=== PATIENT | female | born 1965 | race African-American/Black ===

== ENCOUNTER 2017-03-11 11:13 | Emergency (ER) | payer OTHER, MEDICARE ==
[~2017-03-11] VITALS: Ht 165.1 cm; Wt 82.5 kg
[~2017-03-11 11:13] MED LIST: DICY10 PO; LEVO100T4 PO; PANT20 PO; Z.0.OXYGEN INH; [UNRECOGNIZED DRUG - CODE] SC
[2017-03-11 11:15] VITALS: BP 132/81; PULSE 76; RESP 15; TEMP 98.3; O2SAT 98
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
[2017-03-11] MEDS ORDERED: PRAD75CA PO (14:28)
[2017-03-11] MEDS ORDERED: LEVO75TA3 PO (14:28)
[2017-03-11] MEDS ORDERED: HYDR25TA5 PO (14:28)
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
[2017-03-11] MEDS ORDERED: oxyCODONE/ACETAMINOPHEN 5 MG/325 MG TAB PO ONE (14:45)
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
[2017-03-11] MEDS ORDERED: PERC5TAB12 PO (16:10)
[2017-03-11 16:34] VITALS: BP 122/78
== END 2017-03-11 16:50 | disposition home or self-care (01) ==
LOC: NEPD 11:13
DX: S92.351A Displaced fracture of fifth metatarsal bone, right foot, initial encounter for closed fracture (principal); S62.002A Unspecified fracture of navicular [scaphoid] bone of left wrist, initial encounter for closed fracture; V24.4XXA Motorcycle driver injured in collision with heavy transport vehicle or bus in traffic accident, initial encounter; Y92.414 Local residential or business street as the place of occurrence of the external cause; M85.879 Other specified disorders of bone density and structure, unspecified ankle and foot; D86.9 Sarcoidosis, unspecified; E03.9 Hypothyroidism, unspecified; Z86.718 Personal history of other venous thrombosis and embolism; Z79.01 Long term (current) use of anticoagulants
CPT/HCPCS: 29515; 73130; 73502; 73564; 73590; 73630; 99284; E0113; L3260; L3808

== ENCOUNTER 2017-03-14 11:02 | Emergency (ER) | payer OTHER, MEDICARE ==
[~2017-03-14] VITALS: Ht 165.1 cm; Wt 82.7 kg
[~2017-03-14 11:02] MED LIST changes: -DICY10 PO; +HYDR25TA5 PO; -LEVO100T4 PO; +LEVO75TA3 PO; -PANT20 PO; +PERC5TAB12 PO; +PRAD75CA PO; -Z.0.OXYGEN INH; -[UNRECOGNIZED DRUG - CODE] SC
[2017-03-14 11:04] VITALS: BP 183/82; PULSE 88; RESP 12; TEMP 98.6; O2SAT 100
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
[2017-03-14] MEDS ORDERED: PERC5TAB12 PO (11:24)
== END 2017-03-14 11:54 | disposition home or self-care (01) ==
LOC: NEPK 11:02
DX: Z76.0 Encounter for issue of repeat prescription (principal); M79.672 Pain in left foot; M25.532 Pain in left wrist; D86.9 Sarcoidosis, unspecified; J84.10 Pulmonary fibrosis, unspecified; K85.90 Acute pancreatitis without necrosis or infection, unspecified; E07.9 Disorder of thyroid, unspecified; Z79.899 Other long term (current) drug therapy; Z88.0 Allergy status to penicillin
CPT/HCPCS: 99281

== ENCOUNTER → 2017-06-02 | Day surgery (SDC) | payer MEDICARE, OTHER ==
[~2017-06-02] MED LIST changes: +ACETAMINOPHEN/HYDROcodone 325 MG/5 MG TAB ONE; +BUPIVACAINE/EPINEPHRINE 0.5% PF 10 ML VIAL ONE; +LACTATED RINGER'S 1000 ML INJ 1,000 ML ONE; +MEPERIDINE HCL 25 MG/ML VIAL ONE; +MIDAZOLAM HCL 2 MG/2 ML VIAL ONE; +MORPHINE SULFATE 4 MG/ML INJ ONE; +ONDANSETRON HCL 4 MG/2 ML VIAL IV PUSH ONE; +PROPOFOL 200 MG/20 ML AMP IV ONE; +ceFAZolin INJ 1,000 MG VIAL ONE
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
== END | disposition home or self-care (01) ==
LOC: ESDC 10:20
PROVIDERS: ATTEND Orthopaedic Surgery
DX: S83.241A Other tear of medial meniscus, current injury, right knee, initial encounter (principal)
CPT/HCPCS: 01400; 29881; J0690; J2175; J2250; J2270; J2405; J3010; J7120

== ENCOUNTER 2017-08-12 09:21 | Emergency (ER) | payer OTHER, MEDICARE ==
[~2017-08-12] VITALS: Ht 165.1 cm; Wt 83.0 kg
[~2017-08-12 09:21] MED LIST changes: -ACETAMINOPHEN/HYDROcodone 325 MG/5 MG TAB ONE; -BUPIVACAINE/EPINEPHRINE 0.5% PF 10 ML VIAL ONE; -LACTATED RINGER'S 1000 ML INJ 1,000 ML ONE; -MEPERIDINE HCL 25 MG/ML VIAL ONE; -MIDAZOLAM HCL 2 MG/2 ML VIAL ONE; -MORPHINE SULFATE 4 MG/ML INJ ONE; -ONDANSETRON HCL 4 MG/2 ML VIAL IV PUSH ONE; -PROPOFOL 200 MG/20 ML AMP IV ONE; -ceFAZolin INJ 1,000 MG VIAL ONE
[2017-08-12 09:22] VITALS: BP 174/80; PULSE 64; RESP 14; TEMP 98.2; O2SAT 98
[2017-08-12] MEDS ORDERED: OXYB5TAB8 PO (09:39)
--- NOTE | 2017-08-12 09:39 | PD ---
HPI Chief Complaint: Abdominal Pain Time Seen by Provider: 09:33 Travel History International Travel<30 days: No Contact w/Intl Traveler<30days: No Traveled to known affect area: No History of Present Illness HPI The patient's 51 years old and complains of nausea vomiting diarrhea and abdominal pain. She reports pain in the epigastric right upper quadrant. She has a history of pancreatitis and believes his symptoms are similar. She was seen the [facility] and sent here. The onset was gradual. Timing is constant. Pain is worse with palpation. No fever. Appetite decreased. Etiology of pancreatitis unknown at this time. PFSH Past Medical History Hx Anticoagulant Therapy: Yes (RAGMIN) Diminished Hearing: No Hypertension: Yes Implanted Vascular Access Dvce: Yes Respiratory: Yes (PE, EMPHYSEMA) Pancreatitis: Yes Thyroid Disease: Yes ?: Not : 3 Para: 4 Ectopic : Yes Tubal Ligation: Yes Past Surgical History Appendectomy: Yes Body Medical Devices: clips and pins in right ankle Cholecystectomy: Yes Hysterectomy: Yes (PARTIAL) Other Surgery: Yes (thyroidectomy, lung biopsy x 2) Social History Alcohol Use: No Tobacco Use: No Substance Use: No Allergies-Medications (Allergen,Severity, Reaction): Coded Allergies: zolmitriptan (Unverified Allergy, Severe, 03/18/17) penicillin G (Unverified Allergy, Intermediate, RASH, 03/18/17) adhesive (Unverified Allergy, Mild, SALMON THE SKIN, 03/18/17) levothyroxine (Unverified Allergy, Mild, 03/18/17) levothyroxine sodium (Unverified Allergy, Mild, 03/18/17) sumatriptan (Unverified Allergy, Mild, LOSS OF VISION, 03/18/17) ibuprofen (Unverified Adverse Reaction, Severe, 03/18/17) abd pain naproxen (Unverified Adverse Reaction, Severe, 03/18/17) abd pain Reported Meds & Prescriptions Reported Meds & Active Scripts Active Zofran Odt (Ondansetron Odt) 4 Mg Tab 4 Mg SL Q8HR PRN Reported Ditropan (Oxybutynin Chloride) 5 Mg Tab 5 Mg PO DAILY Pradaxa (Dabigatran) Unknown Strength Cap 1 Cap PO DAILY Levothyroxine (Levothyroxine Sodium) 75 Mcg Tab 75 Mcg PO DAILY Hydrochlorothiazide 25 Mg Tab 25 Mg PO DAILY Review of Systems Except as stated in HPI: all other systems reviewed are Neg Physical Exam Narrative GENERAL: 51-year-old female pleasant SKIN: Warm and dry. HEAD: Atraumatic. Normocephalic. EYES: Pupils equal and round. No scleral icterus. No injection or drainage. ENT: No nasal bleeding or discharge. Mucous membranes pink and moist. NECK: Trachea midline. No JVD. CARDIOVASCULAR: Regular rate and rhythm. RESPIRATORY: No accessory muscle use. Clear to auscultation. Breath sounds equal bilaterally. GASTROINTESTINAL: Soft. Minimal tenderness palpation epigastrium. MUSCULOSKELETAL: Extremities without clubbing, cyanosis, or edema. No obvious deformities. NEUROLOGICAL: Awake and alert. No obvious cranial nerve deficits. Motor grossly within normal limits. Five out of 5 muscle strength in the arms and legs. Normal speech. PSYCHIATRIC: Appropriate mood and affect; insight and judgment normal. Data Data Last Documented VS Vital Signs Date Time Temp Pulse Resp B/P (MAP) Pulse Ox O2 Delivery O2 Flow Rate FiO2 08/12/17 11:37 08/12/17 09:42 97 Room Air 08/12/17 09:34 20 08/12/17 09:22 98.2 64 VS reviewed Orders Orders Complete Blood Count With Diff (08/12/17 09:36) Comprehensive Metabolic Panel (08/12/17 09:36) Lipase (08/12/17 09:36) Urinalysis - C+S If Indicated (08/12/17 09:36) Iv Access Insert/Monitor (08/12/17 09:36) Ecg Monitoring (08/12/17 09:36) Oximetry (08/12/17 09:36) Ondansetron Inj (Zofran Inj) (08/12/17 09:45) Sodium Chloride 0.9% Flush (Ns Flush) (08/12/17 09:45) Dicyclomine Inj (Bentyl Inj) (08/12/17 09:45) Al-Mag Hy-Si 40-40-4 Mg/Ml Liq (Mag-Al P (08/12/17 09:45) Lidocaine 2% Viscous (Xylocaine 2% Visco (08/12/17 09:45) Ct Abd/Pel W Iv Contrast(Rout) (08/12/17 09:36) Iohexol 350 Inj (Omnipaque 350 Inj) (08/12/17 10:19) Labs Laboratory Tests Test 08/12/17 09:41 White Blood Count 5.3 TH/MM3 Red Blood Count 4.28 MIL/MM3 Hemoglobin 13.1 GM/DL Hematocrit 38.4 % Mean Corpuscular Volume 89.6 FL Mean Corpuscular Hemoglobin 30.6 PG Mean Corpuscular Hemoglobin Concent 34.2 % Red Cell Distribution Width 14.2 % Platelet Count 267 TH/MM3 Mean Platelet Volume 9.0 FL Neutrophils (%) (Auto) 36.7 % Lymphocytes (%) (Auto) 51.6 % Monocytes (%) (Auto) 8.0 % Eosinophils (%) (Auto) 3.0 % Basophils (%) (Auto) 0.7 % Neutrophils # (Auto) 2.0 TH/MM3 Lymphocytes # (Auto) 2.8 TH/MM3 Monocytes # (Auto) 0.4 TH/MM3 Eosinophils # (Auto) 0.2 TH/MM3 Basophils # (Auto) 0.0 TH/MM3 CBC Comment DIFF FINAL Differential Comment Urine Color YELLOW Urine Turbidity CLEAR Urine pH 8.0 Urine Specific [place] 1.022 Urine Protein TRACE mg/dL Urine Glucose (UA) NEG mg/dL Urine Ketones NEG mg/dL Urine Occult Blood MOD Urine Nitrite NEG Urine Bilirubin NEG Urine Urobilinogen LESS THAN 2.0 MG/DL Urine Leukocyte Esterase SMALL Urine RBC 48 /hpf Urine WBC 4 /hpf Urine Squamous Epithelial Cells 3 /hpf Urine Mucus FEW /lpf Microscopic Urinalysis Comment CULT NOT INDICATED Blood Urea Nitrogen 14 MG/DL Creatinine 0.76 MG/DL Random Glucose 89 MG/DL Total Protein 8.1 GM/DL Albumin 4.2 GM/DL Calcium Level 8.7 MG/DL Alkaline Phosphatase 99 U/L Aspartate Amino Transf (AST/SGOT) 31 U/L Alanine Aminotransferase (ALT/SGPT) 49 U/L Total Bilirubin 0.5 MG/DL Sodium Level 141 MEQ/L Potassium Level 3.3 MEQ/L Chloride Level 104 MEQ/L Carbon Dioxide Level 32.3 MEQ/L Anion Gap 5 MEQ/L Estimat Glomerular Filtration Rate 97 ML/MIN Lipase 110 U/L [facility] Medical Decision Making Medical Screen Exam Complete: Yes Emergency Medical Condition: Yes Medical Record Reviewed: Yes Differential Diagnosis Gastritis, pancreatitis, appendicitis, acute cholecystitis, ascending cholangitis, AAA, perforated viscous, mesenteric ischemia, hepatitis, cystitis, hydronephrosis/hydroureter/nephroureter calculus, mesenteric adenitis, biliary colic , bowel obstruction Narrative Course CBC & BMP Diagram 08/12/17 09:41 Total Protein 8.1, Albumin 4.2, Calcium Level 8.7, Alkaline Phosphatase 99, Aspartate Amino Transf (AST/SGOT) 31, Alanine Aminotransferase (ALT/SGPT) 49, Total Bilirubin 0.5 Last Impressions Abdomen/Pelvis CT 08/12/17 0936 Signed Impressions: Service Date/Time: Saturday, August 12, 2017 10:06 - CONCLUSION: 1. Nonobstructive bowel gas pattern. 2. Status post cholecystectomy. Lucas Ortega MD The patient is resting comfortably and feels better, is alert and in no distress. The patients results and examination findings were discussed. The repeat examination is unremarkable and benign. The history, exam, diagnostic testing, and current condition do not suggest any significant pathology to warrant further testing, continued ED treatment, admission, or surgical evaluation at this point. The vital signs have been stable. The patient does not have uncontrollable pain, intractable vomiting, or other significant symptoms. The patient's condition is stable and appropriate for discharge. The patient will pursue further outpatient evaluation with a primary care physician or other designated or consulting physician as indicated in the discharge instructions. The patient expressed understanding and was agreeable with this plan. Diagnosis Primary Impression: Vomiting and diarrhea Additional Impression: Abdominal pain Qualified Codes: R10.9 - Unspecified abdominal pain Med/Other Pt SpecificInfo: Prescription(s) given Scripts Ondansetron Odt (Zofran Odt) 4 Mg Tab 4 MG SL Q8HR Y for Nausea/Vomiting, #10 TAB 0 Refills Prov: Jay Brandon MD 08/12/17 Disposition: DISCHARGE HOME Condition: Stable Jay Brandon MD Aug 12, 2017 09:39
[2017-08-12 09:42] VITALS: O2SAT 97
[2017-08-12] MEDS ORDERED: DICYCLOMINE HCL 20 MG/2 ML VIAL IM ONE (09:45)
[2017-08-12] MEDS ORDERED: ALUMINUM/MAGNESIUM/SIMETH 30 ML CUP PO ONE (09:45)
[2017-08-12] MEDS ORDERED: SODIUM CHLORIDE 0.9% FLUSH 10 ML FLUSH IV FLUSH PRN (09:45)
[2017-08-12] MEDS ORDERED: LIDOCAINE VISCOUS 2% SOLN 15 ML UDC PO ONE (09:45)
[2017-08-12] MEDS ORDERED: ONDANSETRON HCL 4 MG/2 ML VIAL IVP ONE (09:45)
[2017-08-12 10:04] LABS: BILIRUBIN, URINE NEG (NEG); BLOOD, URINE MOD (NEG); GLUCOSE,URINE NEG (NEG); KETONE, URINE NEG (NEG); MUCUS URINE FEW /lpf (OCC); NITRITE,URINE NEG (NEG); SQUAMOUS EPITHELIAL CELL URINE 3 /hpf (0-5); URINE COLOR YELLOW (YELLW/STRAW); URINE LEUKOCYTE ESTERASE SMALL (NEG)
[2017-08-12 10:11] LABS: BASOPHIL % 0.7 % (0.0-2.0); EOSINOPHIL # 0.2 TH/MM3 (0-0.4); HEMATOCRIT 38.4 % (35.0-46.0); HEMOGLOBIN 13.1 GM/DL (11.6-15.3); LYMPH % 51.6 % (9.0-44.0); LYMPHOCYTE # 2.8 TH/MM3 (1.0-4.8); MEAN CELL VOLUME 89.6 FL (80.0-100.0); MEAN CORPUSCULAR HEMOGLOBIN 30.6 PG (27.0-34.0); MEAN CORPUSCULAR HGB CONC 34.2 % (32.0-36.0); MONOCYTE # 0.4 TH/MM3 (0-0.9); NEUT % 36.7 % (16.0-70.0); PLATELET COUNT 267 TH/MM3 (150-450); RED BLOOD COUNT 4.28 MIL/MM3 (4.00-5.30); RED CELL DISTRIBUTION WIDTH 14.2 % (11.6-17.2); WHITE BLOOD COUNT 5.3 TH/MM3 (4.0-11.0)
[2017-08-12 10:13] LABS: ALBUMIN 4.2 GM/DL (3.4-5.0); ALT (GPT) 49 U/L (10-53); AST (GOT) 31 U/L (15-37); BICARBONATE 32.3 MEQ/L (21.0-32.0); BLOOD UREA NITROGEN 14 MG/DL (7-18); CALCIUM 8.7 MG/DL (8.5-10.1); CHLORIDE 104 MEQ/L (98-107); CREATININE 0.76 MG/DL (0.50-1.00); GLOMERULAR FILTRATION RATE 97 ML/MIN (>89); GLUCOSE,RANDOM 89 MG/DL (74-106); LIPASE 110 U/L (73-393); SODIUM (NA) 141 MEQ/L (136-145)
[2017-08-12 10:16] LABS: ALKALINE PHOSPHATASE 99 U/L (45-117); TOTAL BILIRUBIN ADULT 0.5 MG/DL (0.2-1.0); TOTAL PROTEIN 8.1 GM/DL (6.4-8.2)
[2017-08-12] MEDS ORDERED: IOHEXOL 350 MG/ML 10 ML VIAL (for RAD DIAG) IVCONTRAST ONE (10:19)
--- NOTE | 2017-08-12 10:27 | RADRPT ---
EXAM DATE/TIME: 08/12/2017 10:06 [facility] COMPARISON: CT ABDOMEN & PELVIS W CONTRAST, December 17, 2015, 5:44. INDICATIONS : Abdominal pain. IV CONTRAST: 94 cc Omnipaque 350 (iohexol) IV ORAL CONTRAST: No oral contrast ingested. RADIATION DOSE: 14.11 CTDIvol (mGy) MEDICAL HISTORY : Pancreatitis. SURGICAL HISTORY : Appendectomy. Hysterectomy. Cholecystectomy. ENCOUNTER: Initial ACUITY: 2 weeks PAIN SCALE: 8/10 LOCATION: Right lower quadrant TECHNIQUE: Volumetric scanning of the abdomen and pelvis was performed. Using automated exposure control and ad justment of the mA and/or kV according to patient size, radiation dose was kept as low as reasonably achievable to obtain optimal diagnostic quality images. DICOM format image data is available electro nically for review and comparison. FINDINGS: LOWER LUNGS: The visualized lower lungs are clear. LIVER: Homogeneous density without lesion. There is no dilation of the biliary tree. The the patient is aga in noted to be status post cholecystectomy. SPLEEN: Normal size without lesion. PANCREAS: Within normal limits. KIDNEYS: Normal in size and shape. There is no mass, stone or hydronephrosis. ADRENAL GLANDS: Within normal limits. VASCULAR: There is no aortic aneurysm. BOWEL/MESENTERY: No oral contrast was given limiting the sensitivity exam. The stomach, small bowel, and colon demonst rate no acute abnormality. There is no free intraperitoneal air or fluid. ABDOMINAL WALL: Within normal limits. RETROPERITONEUM: There is no lymphadenopathy. BLADDER: No wall thickening or mass. REPRODUCTIVE: Within normal limits. INGUINAL: There is no lymphadenopathy or hernia. MUSCULOSKELETAL: Within normal limits for patient age. CONCLUSION: 1. Nonobstructive bowel gas pattern. 2. Status post cholecystectomy. Lucas Ortega MD on August 12, 2017 at 10:19 Board Certified Radiologist. This report was verified electronically.
[2017-08-12] MEDS ORDERED: ZOFR4TAB3 SL (10:40)
== END 2017-08-12 11:38 | disposition home or self-care (01) ==
LOC: NEPE 09:21
DX: R11.2 Nausea with vomiting, unspecified (principal); R19.7 Diarrhea, unspecified; R10.11 Right upper quadrant pain; I10 Essential (primary) hypertension; K85.90 Acute pancreatitis without necrosis or infection, unspecified; Z79.01 Long term (current) use of anticoagulants
CPT/HCPCS: 74177; 80053; 81001; 83690; 85025; 96372; 96374; 99285; J0500; J2405; Q9967